=== PATIENT | male | born 1970 | race Caucasian/White ===

== ENCOUNTER 2018-05-07 07:00 | Day surgery (SDC) | payer OTHER ==
[~2018-05-07] VITALS: Ht 188 cm; Wt 104.3 kg
[~2018-05-07 07:00] MED LIST: MOTRIN IB200 MG PO
--- NOTE | 2018-05-07 10:12 | NUR ---
PT IS ALERT, ORIENTED AND SUPPORTED BY HIS AJAY. BOTH VERY PLEASANT, BUT I COULD SENSE A BIT OF ANXIETY I VISITED WITH PT. I OUTLINED THE DAY FOR PT AND HIS . PT REQUESTED PRAYER, WILL FOLLOW NEEDED
[2018-05-07] MEDS ORDERED: HYDROCODON-ACE1 EA11 PO (10:31)
[2018-05-07] MEDS ORDERED: SENNA LAX8.6 MG PO (10:31)
--- NOTE | 2018-05-07 10:37 | NUR ---
05/07/18 1037 Sheets,Angela 1027 PT REACTIVE TO TACTILE STIMULI AND IS ASLEEP OFF AND ON. RESP EVEN AND UNLABORED. 1030 PT REORINTED TO PACU, PT REACHING FOR O2 MASK. O2 MASK REMOVED. PT DENIES PAIN AND NAUSEA. PT REPORTS FINGER NUMB, PT EDUCATION GIVEN ON BLOCK.
--- NOTE | 2018-05-07 12:49 | OR ---
[facility] [address], [place] [address] Signed DATE OF OPERATION: 05/07/2018 SURGEON: Celia White MD PREOPERATIVE DIAGNOSIS: Right distal biceps rupture. POSTOPERATIVE DIAGNOSIS: Right distal biceps rupture. PROCEDURE PERFORMED: Right biceps repair, distal. SERVICE TRANSFORMER REPAIR SUPERVISOR: Laverne Garzon PA-C. Laverne was present in critical positioning, retraction, and wound closure. ANESTHESIA: General with axillary block. TOURNIQUET TIME: 49 minutes. IMPLANTS: Arthrex distal biceps kit with Endobutton and tenodesis screw. BRIEF HISTORY: Arturo is a 48-year-old gentleman who was lifting his hot tub when he felt a pop in his arm. He had significant pain, was seen in the ER, and ultimately my office. MRI confirmed the distal biceps rupture with mild retraction. Risks and benefits of operative treatment were discussed with him, it took about 3 weeks to get the MRI authorized by his insurance company, and thus he had undergone some scarring. DESCRIPTION OF PROCEDURE: The consent was obtained, he was taken to the operating room. After adequate anesthesia, he was placed on operating table. All downside pressure points were well padded. Right arm was placed in well-padded proximal arm tourniquet, and prepped and draped in a standard sterile fashion. The arm was exsanguinated using Esmarch bandage. Tourniquet inflated to 200 mmHg. The distal biceps was approached through a transverse incision, 4 cm below the crease. This was carried through skin and subcutaneous tissue, Portions of this report were created using voice recognition software. There may be inadvertent computer error. Please read with context in mind. If there are any questions, please contact me. Electronically Signed By: CELIA WHITE MD 05/07/18 1249 PATIENT NAME: ARTURO POOLE OPERATIVE REPORT DATE OF : 68 REPORT #: [id number] PHYSICIAN: CELIA WHITE MD PCP: NO PRIMARY CARE PHYSICIAN REPORT IS CONFIDENTIAL AND NOT TO BE RELEASED WITHOUT AUTHORIZATION [facility] [address], [place] [address] Signed and careful dissection around the vessels and lateral antebrachial cutaneous nerve was identified and retracted, and protected. The forearm was kept in full supination throughout the procedure. The biceps tendon was dissected free of all the scar tissue. This took about 10-15 minutes to dissect it free of the surrounding scar tissue, was mobilized, and brought into the wound. Using the FiberWire stitch, it was fiber looped and trimmed at the end to a point. Once this was completed, it was tucked back up underneath the skin to keep it moist. Dissection was then taken down into the seroma and distal biceps sheath. This was taken down to the biceps tuberosity. This was cleared using the [place] elevator under direct loupe magnification. The guidepin was then advanced from the tuberosities for radials I can get it and advanced bicortical. This was then overdrilled using the 7 mm reamer. All bone fragments and debris were copiously irrigated out. The suture ends on the distal biceps were then placed through the Endobutton and it was placed through the posterior cortex of the radius, and flipped and felt to be tight. Using this, we then advanced the biceps until it was well seated in the biceps tuberosity. The suture was then placed back through the tendon and tied, and the tenodesis screw was placed over the suture and advanced until it was seated flush with tuberosity. The remaining sutures were tied over the top of the end of the biceps tenodesis button and then cut. The final motion of the radius showed the tendon was well-seated and moved well. The wound was again copiously irrigated with antibiotic solution, closed with 2-0 Vicryl and 3-0 Monocryl, and dressed with a Super Glue mesh. The wound was dressed with a Mepilex and gauze. He was awakened, taken to the recovery room in satisfactory condition. All sponge, needle, and instrument counts were correct. Celia White MD BA/GRACIELAL /[id number] Copies: ~ Portions of this report were created using voice recognition software. There may be inadvertent computer error. Please read with context in mind. If there are any questions, please contact me. Electronically Signed By: CELIA WHITE MD 05/07/18 1249 PATIENT NAME: ARTURO POOLE OPERATIVE REPORT DATE OF : 68 REPORT #: [id number] PHYSICIAN: CELIA WHITE MD PCP: NO PRIMARY CARE PHYSICIAN REPORT IS CONFIDENTIAL AND NOT TO BE RELEASED WITHOUT AUTHORIZATION
--- NOTE | 2018-05-07 13:08 | NUR ---
1050 PT ARRIVED TO PACU, AWAKE TALKING WITH RN. DENIES PAIN AND NAUSEA. NUMBNESS AND WEAKNESS NOTED IN OPERATIVE HAND. RX GIVEN TO PT'S TO TAKE TO PHARMACY. WATER GIVEN. CALL LIGHT IN PLACE. WILL MONITOR PT. 1130 PT RESTING, LIGHTS OUT.
--- NOTE | 2018-05-07 13:13 | NUR ---
1150 IN TO TAKE VITALS, PT DOING WELL. DENIES PAIN. CONTINUES TO NOTE NUMBNESS AND TINGLING IN R HAND. PT IS ABLE TO MOVE FINGERS AT THIS TIME. DRESSING CDI. CRACKERS GIVEN. 1210 PT UP TO RESTROOM, TOLERATED WELL. DENIES PAIN. PT STATES HE IS READY TO DC. IV DC'D. PT DRESSED WITH ASSIST FROM . DISCHARGE INSTRUCTIONS GIVEN. PT WHEELED OUT BY VOLUNTEER
== END 2018-05-07 12:25 | disposition home or self-care (01) ==
LOC: DS 07:00
PROVIDERS: Specialist
PROC: 0LS30ZZ Reposition Right Upper Arm Tendon, Open Approach (ICD-10-PCS; principal; 2018-05-07 08:45)
DX: S46.211A Strain of muscle, fascia and tendon of other parts of biceps, right arm, initial encounter (principal); Z87.891 Personal history of nicotine dependence; X50.9XXA Other and unspecified overexertion or strenuous movements or postures, initial encounter
CPT/HCPCS: 01710; 64417; C1713; J0690; J1100; J1885; J2405; J2704; J2795; J3010; J7120

== ENCOUNTER → 2022-04-20 | Day surgery (SDC) | payer OTHER ==
[~2022-04-20] MED LIST changes: +HYDROCODON-ACE1 EA11 PO; +SENNA LAX8.6 MG PO
--- NOTE | 2022-04-21 20:39 | EKG ---
[facility] [address] [facility] [place] [address] Signed Normal sinus rhythm Normal ECG No previous ECGs available Confirmed by Keshia Soriano MD () on 04/21/2022 8:38:56 PM Electronically Signed By: KESHIA SORIANO MD 04/21/222038 PATIENT NAME: SINGH POOLE Electrocardiogram DATE OF : 68 PHYSICIAN: KESHIA SORIANO MD REPORT #: [id number] REPORT IS CONFIDENTIAL AND NOT TO BE RELEASED WITHOUT AUTHORIZATION
== END ==
LOC: PRE-LAB 10:51
PROVIDERS: ATTEND Colon & Rectal Surgery
DX: Z01.818 Encounter for other preprocedural examination (principal); Z12.11 Encounter for screening for malignant neoplasm of colon; I10 Essential (primary) hypertension
CPT/HCPCS: 36415; 80053; 85025; 93005; 93010

== ENCOUNTER 2022-04-27 05:50 | Day surgery (SDC) | payer OTHER ==
[~2022-04-27] VITALS: Ht 188 cm; Wt 125.0 kg
--- NOTE | 2022-04-27 08:11 | NUR ---
PT ALERT, ORIENTED AND SUPPORTE BY HIS AJAY. PT HERE FOR HIS FIRST SCOPE SEEMED TO DEAL APPROPRIATELY, ALL QUESTIONS ASKED ANSWERED. AJAY WILL REMAIN IN FOR DC. PT REQUESTED PRAYER, GAVE BLESSING, WILL FOLLOW
--- NOTE | 2022-04-27 08:41 | NUR ---
04/27/22 0841 Ely Sapp 0801 PT ARRIVED IN PACU NON RESPONSIVE TO NOXIOUS STIMULI WITH OPA IN PLACE. ABD SOFT AND PASSING FLATUS. 0811 PT REACTIVE. OPA REMOVED. 0815 SITTING UP IN BED TALKING TO STAFF AND SIPPING ON WATER. 0825 DC INSTRUCTIONS GIVEN. 0833 LEFT VIA W/C.
--- NOTE | 2022-04-27 09:17 | OR ---
[facility] [address], [place] [address] Signed DATE OF OPERATION: 04/27/2022 SURGEON: Mike Watts MD PREOPERATIVE DIAGNOSIS: Screening. POSTOPERATIVE DIAGNOSES: 1. Minimal sigmoid diverticulosis. 2. Minimal internal hemorrhoids. 3. 5 mm polyp at 12 cm (rectum). 4. 5 mm polyp at 23 cm (sigmoid colon). 5. 4 mm polyp in cecum opposite ileocecal valve. 6. 3 mm polyp at 55 cm (left colon). 7. 3 mm polyp at 40 cm (left colon). PROCEDURE: Colonoscopy with hot biopsy. ESTIMATED BLOOD LOSS: None. INDICATIONS: Arturo is a 51-year-old gentleman, asked to see me for his initial screening colonoscopy. He has no family history of colon cancer or polyps. He has no lower GI complaints. He told me his just went through her colonoscopy a few weeks ago and therefore he is familiar with this process. In the office, I had given him a pamphlet on colonoscopy. We reviewed the nature of the test. There is risk including, but not limited to gas bloating, crampy abdominal pain, bleeding, perforation requiring surgery, and missed diagnosis. We also reviewed the written instructions for bowel prep line by line. Also, he has a body mass index of 35 and has sleep apnea and does use alcohol on a nightly basis along with his sleep apnea. Consequently, we did ask for an anesthesia provider to help us with increased monitoring and sedation with propofol. That proved to be a alcala decision. Arturo had expressed understanding and wished to proceed. PROCEDURE NOTE: Arturo was taken into our endoscopy suite and placed in the left lateral decubitus position. He was given IV sedation with propofol per our nurse rv repair technician. A digital rectal exam was performed and this was unremarkable. He had no external hemorrhoids. He had good sphincter tone. His prostate is slightly enlarged and slightly indurated. Electronically Signed By: MIKE WATTS MD 04/27/22 0917 PATIENT NAME: ARTURO POOLE OPERATIVE REPORT DATE OF : 68 REPORT #: [id number] PHYSICIAN: MIKE WATTS MD PCP: ABBEY SPEARS REPORT IS CONFIDENTIAL AND NOT TO BE RELEASED WITHOUT AUTHORIZATION [facility] [address], [place] [address] Signed The adult colonoscope had been introduced and advanced under direct visualization of the camera. He has very little angulation at the rectosigmoid junction. The scope passed very nicely all around into the cecum without difficulty. His prep was quite excellent. We could easily see the appendiceal orifice and the ileocecal valve. The scope was then slowly withdrawn. We removed the above mentioned polyps with the help of hot biopsy forceps. We saw just a few diverticula clustered in his proximal sigmoid colon and/or distal left colon. Down in the rectum, the scope had been retroflexed and he has very minimal internal hemorrhoid columns. After this, the gas was suctioned out and the colonoscope removed. Arturo tolerated he procedure quite well. RECOMMENDATIONS: I will see Arturo back in my office in 7 to 14 days to review his results. Mike Watts MD ALB/MODL /[id number] cc: MD Abbey Laws PA Copies: MIKE WATTS MD, LINDA PA ~ Electronically Signed By: MIKE WATTS MD 04/27/22 0917 PATIENT NAME: ARTURO POOLE OPERATIVE REPORT DATE OF : 68 REPORT #: [id number] PHYSICIAN: MIKE WATTS MD PCP: ABBEY SPEARS REPORT IS CONFIDENTIAL AND NOT TO BE RELEASED WITHOUT AUTHORIZATION
--- NOTE | 2022-04-29 16:59 | PATH ---
[facility] [address] [facility] [place], [place] [address] Signed SPECIMEN(S): A RECTAL POLYP AT 12 CM SPECIMEN(S): B SIGMOID POLYP AT 23 CM SPECIMEN(S): C CECUM POLYP SPECIMEN(S): D DESCENDING/LEFT COLON POLYP AT 55 CM SPECIMEN(S): E POLYP AT 40 CM SPECIMEN SOURCE: A. RECTAL POLYP AT 12 CM B. SIGMOID POLYP AT 23 CM C. CECUM POLYP D. DESCENDING/LEFT COLON POLYP AT 55 CM E. POLYP AT 40 CM CLINICAL HISTORY: Screening. Diverticulosis, colon polyps, rectal polyp, internal hemorrhoids. FINAL PATHOLOGIC DIAGNOSIS: A. Rectal polyp at 12 cm: - Tubular adenoma (one fragment). B. Sigmoid polyp at 23 cm: - Tubular adenoma (two fragments). C. Cecum polyp: - Tubular adenoma (one fragment). D. Descending / left colon polyp at 55 cm: - Inflammatory polyp. E. Polyp at 40 cm: - Inflammatory polyp (one fragment). JVR:[id number] MICROSCOPIC EXAMINATION: Histologic sections of all submitted blocks are examined by light microscopy. These findings, together with the gross examination, support the pathologic diagnosis. GROSS DESCRIPTION: A. The specimen, labeled and designated "Zulema, rectal polyp at 12 cm," is received in formalin and consists of one shultz soft tissue fragment, 0.3 cm. Entirely submitted in (A1). B. The specimen, labeled and designated "Zulema, sigmoid polyp at 23 cm," is received in formalin and consists of two shultz soft tissue fragments, ranging from 0.2-0.3 cm. Entirely submitted in (B1). PATIENT NAME: SINGH POOLE PATHOLOGY DATE OF : 68 REPORT #: [id number] PHYSICIAN: [employer] PCP: ANATOLIY SPEARS REPORT IS CONFIDENTIAL AND NOT TO BE RELEASED WITHOUT AUTHORIZATION [facility] [address] [place], [place] [address] Signed C. The specimen, labeled and designated "Zulema, cecum polyp," is received in formalin and consists of one shultz soft tissue fragment, 0.3 cm. Entirely submitted in (C1). D. The specimen, labeled and designated "Zulema, descending/left colon polyp at 55 cm," is received in formalin and consists of one shultz soft tissue fragment, 0.2 cm. Entirely submitted in (D1). E. The specimen, labeled and designated "Zulema, polyp at 40 cm," is received in formalin and consists of one shultz soft tissue fragment, 0.2 cm. Entirely submitted in (E1). VB (under the direct supervision of a pathologist) The Gross Description was prepared using a voice recognition system. The report was reviewed for accuracy; however, sound-alike word errors, addition and/or deletions may occur. If there is any question about this report, please contact Client Services. PERFORMING LABORATORY: The technical component was performed by [facility], [address] [place] [id number] (CLIA# [id number]). Professional interpretation was performed by [facility], [address] [place] [id number] (CLIA#: [id number]). Diagnostician: Daniel Panchal MD Pathologist Electronically Signed 04/29/2022 Copies: ~ PATIENT NAME: ZULEMASINGH SARAH PATHOLOGY DATE OF : 68 REPORT #: [id number] PHYSICIAN: MIKE PATHOLOGY PCP: ANATOLIY SPEARS REPORT IS CONFIDENTIAL AND NOT TO BE RELEASED WITHOUT AUTHORIZATION
== END 2022-04-27 08:33 | disposition home or self-care (01) ==
LOC: DS 05:50 → OPS 05:50
PROVIDERS: ATTEND Colon & Rectal Surgery
PROC: 0DDM8ZX Extraction of Descending Colon, Via Natural or Artificial Opening Endoscopic, Diagnostic (ICD-10-PCS; principal; 2022-04-27 07:30)
DX: Z12.11 Encounter for screening for malignant neoplasm of colon (principal); D12.7 Benign neoplasm of rectosigmoid junction; K58.9 Irritable bowel syndrome, unspecified; E66.9 Obesity, unspecified; K64.8 Other hemorrhoids; Z78.9 Other specified health status; Z68.34 Body mass index [BMI] 34.0-34.9, adult
CPT/HCPCS: 00811; J2704; J7121